=== PATIENT | female | born 1960 | race African-American/Black ===

== ENCOUNTER 2017-03-25 03:50 | Emergency (ER) | payer OTHER ==
[~2017-03-25] VITALS: Ht 172.7 cm; Wt 81.7 kg
--- NOTE | ~2017-03-25 | EKG ---
[place] [address] [id number] [employer] [place] [address] ELECTROCARDIOGRAM REPORT Name: CORNELIA ZHAO Room #: [facility]#: [id number] Admission: 03/25/17 Attend Phys: Discharge: 03/25/17 Date of : 64 Report #: [id number] THIS REPORT FOR: //name// [facility] ED Test Date: 2017-03-25 Test Time: 03:54:20 Pat Name: CORNELIA ZHAO Department: Room: Gender: F Program Production Specialist: Anton DAVE : 1960 Requested By: Shraddha Black Order Number: [id number] MD: Roberto Nevarez Measurements Intervals [place] Rate: 59 P: 39 CT: 156 QRS: 15 QRSD: 82 T: 50 QT: 452 QTc: 448 Interpretive Statements Sinus bradycardia Otherwise no significant abnormality Compared to ECG 09/22/2010 17:46:23 Septal Q waves are no longer present Electronically Signed On 03-25-2017 16:24:55 CDT by Roberto Nevarez [email or web address] <ELECTRONICALLY SIGNED> By: Roberto Nevarez MD, [facility] 03/25/17 1624 [id number] 3 Roberto Nevarez MD, FACC /EPI
[~2017-03-25 03:50] MED LIST: ACCUPRIL40 MG PO; CALCIUM WITH M1 EACH; CALCIUM500 M1; CODEINE ELIXIR; LEVAQUIN 250 M250 MG; PHENERGAN 25 MG25 M1 PO; PROMS25 WY RECTAL; ULTRAM 50MG TAB50 MG PO; UNICOMPLEX M TA1 TA1 PO
[2017-03-25] MEDS ORDERED: ALEVE220 MG (03:56)
[2017-03-25 04:18] LABS: ABSOLUTE NEUTROPHILS 2.4 thou/uL (1.4-8.2); BASOPHILS 0.8 % (0.0-2.0); EOSINOPHILS 3.6 % (0.0-3.0); HEMATOCRIT 36.4 % (37.0-47.0); HEMOGLOBIN 11.8 gm/dL (12.0-15.0); LYMPHOCYTES 48.6 % (24.0-44.0); MCH 23.4 pg (26.0-34.0); MCHC 32.3 g/dL (28.0-37.0); MCV 72.5 fL (80.0-100.0); MONOCYTES 9.4 % (1.0-8.0); PLATELET COUNT 214 thou/uL (150-400); POLYS 37.6 % (36.0-66.0); RBC 5.03 mil/uL (4.20-5.00); RDW 16.1 % (10.5-14.5); WBC 6.4 thou/uL (4.0-11.0)
[2017-03-25 04:23] LABS: MANUAL DIFF NO
[2017-03-25 04:26] LABS: ANION GAP 8 mmol/L (7-16); BUN 25 mg/dL (7-18); CALCIUM 9.1 mg/dL (8.5-10.1); CHLORIDE 105 mmol/L (98-107); CO2 25 mmol/L (21-32); GLUCOSE 90 mg/dL (74-106); POTASSIUM 3.7 mmol/L (3.5-5.1); SODIUM 138 mmol/L (136-145)
[2017-03-25 04:30] LABS: TROPONIN-I < 0.04 ng/mL (<0.04-0.07)
[2017-03-25] MEDS ORDERED: ULTRAM 50MG TAB50 MG PO (04:54)
[2017-03-25 05:03] VITALS: BP 135/100
== END 2017-03-25 05:06 | disposition home or self-care (01) ==
LOC: ER 03:50
PROVIDERS: Emergency Medicine
DX: R07.89 Other chest pain (principal); I11.0 Hypertensive heart disease with heart failure; Z88.6 Allergy status to analgesic agent; Z88.1 Allergy status to other antibiotic agents; Z88.0 Allergy status to penicillin; Z88.8 Allergy status to other drugs, medicaments and biological substances